=== PATIENT | male | born 1975 | race Caucasian/White ===

== ENCOUNTER 2022-08-14 08:56 | Outpatient (CLI) | payer OTHER, SELFPAY | END 2022-08-14 08:57 | disposition home or self-care (01) | PROVIDERS: PCP Family Medicine; Visit Provider Family Medicine | DX: Z00.00 Encounter for general adult medical examination without abnormal findings (principal); E78.5 Hyperlipidemia, unspecified; I10 Essential (primary) hypertension | CPT/HCPCS: 80048; 80061; 84460 ==

== ENCOUNTER 2023-09-23 11:19 | Outpatient (CLI) | payer OTHER, SELFPAY | END 2023-09-23 11:20 | disposition home or self-care (01) | PROVIDERS: PCP Family Medicine; Visit Provider Family Medicine | DX: I10 Essential (primary) hypertension (principal); E78.2 Mixed hyperlipidemia | CPT/HCPCS: 80048; 80061; 84460 ==

== ENCOUNTER 2024-09-26 09:36 | Outpatient (CLI) | payer OTHER, SELFPAY | END 2024-09-26 09:37 | disposition home or self-care (01) | PROVIDERS: PCP Family Medicine; Visit Provider Family Medicine | DX: I10 Essential (primary) hypertension (principal); E78.2 Mixed hyperlipidemia; E66.09 Other obesity due to excess calories | CPT/HCPCS: 80048; 80061; 84460 ==